=== PATIENT | male | born 1975 | race Caucasian/White ===

== ENCOUNTER 2023-09-21 08:12 | Outpatient (CLI) | payer OTHER, SELFPAY ==
--- NOTE | 2023-09-21 08:27 | ECG_ITS ---
Measurements Intervals [place] Rate: 70 P: 22 CO: 160 QRS: 1 QRSD: 104 T: 31 QT: 372 QTc: 403 Interpretive Statements SINUS RHYTHM NO PREVIOUS ECG AVAILABLE FOR COMPARISON Electronically Signed On 09-21-2023 8:49:46 BOARDING MACHINE OPERATOR by Raheel Beaulieu M.D.
== END 2023-09-21 08:13 | disposition home or self-care (01) ==
PROVIDERS: Visit Provider Otolaryngology
DX: E78.00 Pure hypercholesterolemia, unspecified (principal); Z01.818 Encounter for other preprocedural examination
CPT/HCPCS: 93005

== ENCOUNTER 2023-09-27 02:07 | Day surgery (SDC) | payer OTHER, SELFPAY ==
[2023-09-15 14:30] VITALS: BMI 29.9
--- NOTE | 2023-09-15 14:39 | PC.NURSE ---
Report to the Outpatient Waiting Room, entrance under the green pavilion located off [facility], at time 07:30AM on date 09-27-23. Planned Procedure Time: 09:30AM. Time changes happen often and if your time is changed the preop area will call you the afternoon before. - You and your visitor will be asked to self-screen and do not enter if you have any COVID symptoms. - A mask is optional within the hospital at this time. Patients may have clear liquids (water, carbonated beverages, clear teas, apple juice) until 3 hours prior to surgery (06:30AM) with a maximum of 20 ounces. - No food from midnight until time of surgery Take the following medications with a SIP of water the morning of surgery: CLONAZEPAM NEEDED, SERTRALINE NIGHT BEFORE DO NOT STOP ANY OF YOUR OTHER PRESCRIPTION MEDICATIONS PRIOR TO SURGERY ?EXCEPT THE FOLLOWING Medications to discontinue per physician VIT D Date to take last dose 08-23-23 Please no make-up, nail english, hairspray, perfume, deodorant, or body powder the day of surgery. No jewelry (including any body piercings) or valuables the day of surgery, leave them at home. Please take a shower or bath the night before, or the morning of, surgery with an antibacterial soap. Wear comfortable, loose fitting clothing. - Jewelry must be removed prior to entering the operating room. Rings and piercings that are not removed may be cut off. - The hospital will not accept responsibility for valuables. - Please leave all valuables, including medications, at home the day of surgery. If you are going home after surgery, a licensed stage driver must drive you home. - NO public transportation without another adult if you receive anesthesia. - We recommend that an adult stay with you for 24 hours following discharge. - We also recommend that you do not drive, make important decision, drink alcoholic beverages, or take any drugs that were not prescribed by your health care provider for at least 24 hours after your discharge time. Follow any additional instructions given to you from your surgeon. If you or anyone in your household have experienced Covid symptoms in the past week, please notify your surgeon or the nurse liaison at the phone number below for possible testing. Telephone instructions given to PATIENT and asked if any additional questions and then verbalized understanding. Patient advised to call surgeon office or pre surgery nurse liaison [phone] if any additional questions.
[2023-09-27] VITALS (7 sets, daily range): BP systolic 99–117; BP diastolic 46–78; PULSE 66–98; RESP 12–16; TEMP 36.2; O2SAT 97–100
[2023-09-27] MEDS: ACETAMINOPHEN 500 MG TABLET 1000 MG PO (07:37)
--- NOTE | 2023-09-27 08:29 | WPDANESEPPF ---
Anes - Initial Pre Proc Eval Procedure: Operation Date: 09/27/23 09:30 Proposed Procedures p Left Ear Tympanoplasty - Tommy Carlos MD Date/Time: 09/27/23 08:29 Surgeon: Tommy Carlos MD Pre Op Diagnosis: perforated eardrum, eustachian tube dysfunction Patient Data Age: 48 Gender: M Height: 1.83 m Weight: 100.5 kg Last Vital Signs Temp 36.2 C L 09/27/23 07:44 Pulse 66 09/27/23 07:44 Resp 16 09/27/23 07:44 BP 117/78 09/27/23 07:44 Pulse Ox 100 09/27/23 07:44 O2 Del Method Room Air 09/27/23 07:44 Allergies Allergy/AdvReac Type Severity Reaction Status Date / Time No Known Allergies Allergy Verified 09/27/23 07:35 Home Medications Medication Instructions Recorded Confirmed Type cholecalciferol (vitamin D3) 125 125 mcg PO DAILY 09/15/23 09/15/23 History mcg (5,000 unit) tablet clonazepam 0.5 mg tablet 0.5 mg PO PRN PRN Anxiety 09/15/23 09/15/23 History fluticasone propionate 50 1 spray intranasal DAILY 09/15/23 09/15/23 History mcg/actuation nasal spray,suspension loratadine 10 mg tablet (Claritin) 10 mg PO DAILY 09/15/23 09/15/23 History sertraline 50 mg tablet 50 mg PO DAILY 09/15/23 09/15/23 History simvastatin 20 mg tablet 20 mg PO DAILY 09/15/23 09/15/23 History Patient hx anesthesia problems: none Family hx anesthesia problems: none Results Review: All pre-operative results and documents have been reviewed as part of the pre-operative evaluation. [facility] Past Medical History Medical History (Updated 09/27/23 @ 10:02 by Tommy Carlos MD) Anxiety Depression GERD (gastroesophageal reflux disease) Hyperlipidemia CARMEN (obstructive sleep apnea) Social History Social History Smoking status: Never smoker Second hand tobacco smoke exposure: No Alcohol intake: former Alcohol use details: HAS DRANK SOCIALLY IN THE PAST Substance use: never Substance use type: does not use Living arrangements: with family Spiritual care concerns: No Anes - Eval Final PreProcedure Day of Procedure 09/27/23 08:29 Patient weight: obese Heart: regular rate and rhythm Lungs: clear to auscultation Airway: Mallampati scale class II Neurological: alert and oriented Last oral intake: >/= 8 hours ASA classification: III Emergent: no Anesthetic plan: proceed Anesthesia type and monitoring: general GIVS and standard monitoring Results Review: All pre-operative results and documents have been reviewed as part of the pre-operative evaluation. Informed Consent: The patient's anesthetic plan and its attendant risks and benefits were discussed with the patient/family/POA. Questions were solicited and answers provided to the satisfaction of the patient/family/POA.
[2023-09-27] MEDS: LACTATED RINGERS 1,000 ML 30 ML IV CONT ×2 (09:43→12:21)
--- NOTE | 2023-09-27 10:00 | PM.IMHP ---
H&P: HPI History of Present Illness Date/Time: 09/27/23 10:00 Chief Complaint: Bilateral TM perforation, ETD Narrative: This patient has bilateral TM perforations from T-tubes performed at outside facility, presented to ENT with aural fullness and hearing loss, here for LEFT TM perforation. Review of Systems Review of Systems: All systems reviewed & are unremarkable except as noted in HPI and below PMFSH Past Medical History Medical History Anxiety Depression GERD (gastroesophageal reflux disease) Hyperlipidemia CARMEN (obstructive sleep apnea) Social History Social History Smoking status: Never smoker Second hand tobacco smoke exposure: No Alcohol intake: former Alcohol use details: HAS DRANK SOCIALLY IN THE PAST Substance use: never Substance use type: does not use Living arrangements: with family Spiritual care concerns: No Meds Home Medications and Allergies Home Medications Medication Instructions Recorded Confirmed Type cholecalciferol (vitamin D3) 125 125 mcg PO DAILY 09/15/23 09/15/23 History mcg (5,000 unit) tablet clonazepam 0.5 mg tablet 0.5 mg PO PRN PRN Anxiety 09/15/23 09/15/23 History fluticasone propionate 50 1 spray intranasal DAILY 09/15/23 09/15/23 History mcg/actuation nasal spray,suspension loratadine 10 mg tablet (Claritin) 10 mg PO DAILY 09/15/23 09/15/23 History sertraline 50 mg tablet 50 mg PO DAILY 09/15/23 09/15/23 History simvastatin 20 mg tablet 20 mg PO DAILY 09/15/23 09/15/23 History Allergies Allergy/AdvReac Type Severity Reaction Status Date / Time No Known Allergies Allergy Verified 09/27/23 07:35 Vital Signs Vital Signs - 24 hr 09/27/23 07:44 Temperature 36.2 C L Pulse Rate 66 Respiratory Rate 16 Blood Pressure 117/78 Pulse Oximetry 100 Oxygen Delivery Room Air Exam Narrative: 50% left TM perforation with dry edges, rest of exam wnl Assessment and Plan Assessment and plan (1) Tympanic membrane perforation: Code(s): H72.90 - Unspecified perforation of tympanic membrane, unspecified ear Status: Acute Plan 48y M with bilateral TM perforation, LEFT tympanoplasty today. left ear marked. r/b/a reviewed, all questions answered, pt agrees to proceed.
--- NOTE | 2023-09-27 10:07 | WPDHPUPDATE1 ---
History and Physical Update Update Date/Time: 09/27/23 10:07 History and Physical has been reviewed, including an updated exam of the patient. There are NO changes in the patient's condition. Risks, benefits, and alternatives have been discussed and questions answered. Patient agrees to proceed with procedure.
[2023-09-27] MEDS: ceFAZolin 2 GM/D5W 50 ML 2 GM/50 ML BAG IVPB (10:38)
[2023-09-27] MEDS: EPINEPHrine HCL INJ 1 MG/ML AMPUL IRRIGATION (11:06)
[2023-09-27] MEDS: CIPROFLOXACIN HCL 0.3% OP SOLN 2.5 ML BTL 4 DROP EACH EAR (12:06)
[2023-09-27] MEDS: MUPIROCIN 2% OINT 22 GM TUBE 1 APPLIC TOPICAL (12:08)
--- NOTE | 2023-09-27 12:16 | P.OP_ITS ---
Procedure Note - Detailed Date of Procedure 09/27/23 Pre-op Diagnosis perforated eardrum, eustachian tube dysfunction Post-op Diagnosis Same Procedure Performed Left medial graft tympanoplasty Surgeon Tommy Carlos MD Anesthesia General Indications left TM perforation Findings 50% TM perforation, medial graft from temporalis fascia Description of Procedure On the date of surgery, the patient was identified in the preoperative holding area.? The left ear was marked indicating the correct side of surgery.? They consented to surgery and was brought back to the operating room and placed under general anesthesia.? A timeout was performed verifying the correct patient identity and procedure to be performed.? The bed was rotated 180 degrees and a small amount of hair was trimmed from the left postauricular area.? They were then prepped and draped in standard fashion for left sided tympanoplasty. Attention first was directed through the ear canal.? Cerumen was removed under binocular microscopy and the perforation was examined and found to be 40-50% of the size of the tympanic membrane.? The middle ear space was dry.? The edges of the perforation were freshened using a valverde pick and microcup forceps.? Next, a 4 quadrant injection was performed with 1% lidocaine with 1:100k epinephrine.? The postauricular sulcus was also injected.? Using an angled and straight [place] blade, a vascular strip was elevated and tympanomeatal flap incisions were made.? The tympanomeatal flap was then elevated partially and a cotton ball soaked in 1:1000 epinephrine diluted with 10cc of saline was placed in the canal . Next, attention was directed behind the ear.? An incision was made in the post- auricular sulcus.? Using bovie electrocautery, dissection was performed through the subcutaneous tissues down to the level of the fascia.? The temporalis fascia was then identified and dissected free superficially and deep.? A 15 blade was used to incise through the fascia and then was elevated.? A 2x2cm window of fa scia was then harvested, flattened on a sil block and then placed in a graft press for 5 minutes, then opened to dry. While the graft was prepared, the tympanomeatal flap was elevated and the rolando ulus was lifted out of the annular groove.? The middle ear space was entered with a pick and the annulus was fully elevated out of the groove and the tympanomeatal flap was completely elevated.? Several small pieces of gelfoam were placed in the middle ear space.? Next, the graft was? placed in the canal and in the middle ear space medial to the [place] tympanic membrane.? Some manipulation allowed it to cover the entire perforation.? Gelfoam was then packed in the middle ear space further to bulk out the graft.? Once satisfied with the positioning covering the entire perforation, the tympanomeatal flap and graft were laid down.? The ear canal was further packed with gelfoam to the catilaginous meatus.? The postauricular incision was then closed with 3-0 vicryl, 4-0 monocryl and dermabond in a layered fashion.? The canal was filled with mupirocin ointment and a cotton ball was placed in the meatus.? The drapes were taken down and care of the patient was returned to anesthsia who woke them up in the OR and transferred to the PACU for recovery in stable condition without complication. Estimated Blood Loss 5 Drains No Packing No Pathology None sent Complications No immediate complications Condition Stable Disposition PACU
== END 2023-09-27 14:05 | disposition home or self-care (01) ==
PROVIDERS: Visit Provider Otolaryngology
PROC: (CPT 69610; principal; 2023-09-27 09:30)
DX: H72.92 Unspecified perforation of tympanic membrane, left ear (principal); H69.92 Unspecified Eustachian tube disorder, left ear; F41.9 Anxiety disorder, unspecified; F32.A Depression, unspecified; K21.9 Gastro-esophageal reflux disease without esophagitis; E78.5 Hyperlipidemia, unspecified; G47.33 Obstructive sleep apnea (adult) (pediatric); E66.9 Obesity, unspecified; Z68.30 Body mass index [BMI] 30.0-30.9, adult
CPT/HCPCS: 69610; 15769; 93005; A9270; J0171; J0461; J0690; J1100; J1170; J1596; J2250; J2371; J2405; J2704; J3010; J7120

== ENCOUNTER 2023-11-08 00:58 | Day surgery (SDC) | payer OTHER, SELFPAY ==
--- NOTE | 2023-11-01 13:15 | PC.NURSE ---
Report to the Outpatient Waiting Room, entrance under the green pavilion located off [facility], at time 0815 on date 11/08/23. Planned Procedure Time: 1015. Time changes happen often and if your time is changed the preop area will call you the afternoon before. - You and your visitor will be asked to self-screen and do not enter if you have any COVID symptoms. - A mask is optional within the hospital at this time. Patients may have clear liquids (water, carbonated beverages, clear teas, apple juice) until 3 hours prior to surgery with a maximum of 20 ounces. - No food from midnight until time of surgery Take the following medications with a SIP of water the morning of surgery: CLONAZEPAM IF NEEDED DO NOT STOP ANY OF YOUR OTHER PRESCRIPTION MEDICATIONS PRIOR TO SURGERY ?EXCEPT THE FOLLOWING Medications to discontinue per physician: VITAMINS Date to take last dose: 11/04/23 Please no make-up, nail ukrainian, hairspray, perfume, deodorant, or body powder the day of surgery. No jewelry (including any body piercings) or valuables the day of surgery, leave them at home. Please take a shower or bath the night before, or the morning of, surgery with an antibacterial soap. Wear comfortable, loose fitting clothing. - Jewelry must be removed prior to entering the operating room. Rings and piercings that are not removed may be cut off. - The hospital will not accept responsibility for valuables. - Please leave all valuables, including medications, at home the day of surgery. If you are going home after surgery, a licensed food mobile driver must drive you home. - NO public transportation without another adult if you receive anesthesia. - We recommend that an adult stay with you for 24 hours following discharge. - We also recommend that you do not drive, make important decision, drink alcoholic beverages, or take any drugs that were not prescribed by your health care provider for at least 24 hours after your discharge time. Follow any additional instructions given to you from your surgeon. If you or anyone in your household have experienced Covid symptoms in the past week, please notify your surgeon or the nurse liaison at the phone number below for possible testing. Telephone instructions given to PT - ALHAJI CERRATO and asked if any additional questions and then verbalized understanding. Patient advised to call surgeon office or pre surgery nurse liaison [phone] if any additional questions.
[2023-11-08] VITALS (7 sets, daily range): BP systolic 100–120; BP diastolic 61–80; PULSE 64–86; RESP 12–14; TEMP 36.2–36.3; O2SAT 99–100
--- NOTE | 2023-11-08 07:08 | WPDHPUPDATE1 ---
History and Physical Update Update Date/Time: 11/08/23 07:08 History and Physical has been reviewed, including an updated exam of the patient. There are NO changes in the patient's condition. Risks, benefits, and alternatives have been discussed and questions answered. Patient agrees to proceed with procedure.
[2023-11-08] MEDS: ACETAMINOPHEN 500 MG TABLET 1000 MG PO (07:36)
--- NOTE | 2023-11-08 07:45 | W.PM.PROC2 ---
Procedure Note - Detailed Date of Procedure 11/08/23 Pre-op Diagnosis tympanic membrane perforation rt ear Post-op Diagnosis Same Procedure Performed Right fat graft myringoplasty Surgeon Tommy Carlos MD Anesthesia General Indications Right TM perforation Findings 15-20% central anterior perforation closed with fat graft harvested from ear lobule Description of Procedure On date of surgery, the patient was identified in the preoperative holding area. Consent signed and verified. The right ear was marked. The patient was then taken back to the OR and placed under general anesthesia via laryngeal mask. A timeout was performed verifying the correct patient identity, laterality and procedure which they were. The patient was then prepped and draped for RIGHT ear surgery. The ear was first examined under binocular microscope. This revealed a 15% central perforation of the tympanic membrane. The edges were freshened using a valverde pick with a postage stamp technique. Next, a small amount of gelfoam packing was secured in the middle ear space to create a bed for the graft. Attention was then directed to the ear lobule. A 1cm incision was made at the inferior aspect of the lobule after 1% lidocaine with 1:100k epinephrine was infiltrated. A piece of fat was harvested for grafting with care to avoid injury to surrounding skin. The harvest site was then closed with 5-0 fast absorbing suture in an interrupted fashion. The fat graft was then placed on the gelfoam, completely covering the perforation. Satisfied with placement, A cotton ball was placed in the ear canal, ointment and bandage placed on the harvest site, and care of the patient was returned to anesthesia who woke the patient up, removed LMA and transferred the patient to the PACU for recovery in stable condition without complication. Tommy Carlos M.D. Estimated Blood Loss 1 Drains No Packing Yes (gelfoam in middle ear space) Pathology None sent Complications No immediate complications Condition Stable Disposition PACU
--- NOTE | 2023-11-08 07:52 | WPDANESEPPF ---
Anes - Initial Pre Proc Eval Procedure: Operation Date: 11/08/23 08:00 Proposed Procedures p Right Ear Fat Graft Myringoplasty - Tommy Carlos MD Date/Time: 11/08/23 07:52 Surgeon: Tommy Carlos MD Pre Op Diagnosis: tympanic membrane perforation rt ear Patient Data Age: 48 Gender: M Height: 1.83 m Weight: 102.3 kg Last Vital Signs Temp 36.2 C L 11/08/23 07:00 Pulse 75 11/08/23 07:00 Resp 12 11/08/23 07:00 BP 114/76 11/08/23 07:00 Pulse Ox 100 11/08/23 07:00 O2 Del Method Room Air 11/08/23 07:00 Allergies Allergy/AdvReac Type Severity Reaction Status Date / Time No Known Allergies Allergy Verified 11/08/23 07:32 Home Medications Medication Instructions Recorded Confirmed Type cholecalciferol (vitamin D3) 125 125 mcg PO DAILY 09/15/23 11/08/23 History mcg (5,000 unit) tablet clonazepam 0.5 mg tablet 0.5 mg PO PRN PRN Anxiety 09/15/23 11/08/23 History fluticasone propionate 50 1 spray intranasal DAILY 09/15/23 11/08/23 History mcg/actuation nasal spray,suspension loratadine 10 mg tablet (Claritin) 10 mg PO DAILY 09/15/23 11/08/23 History sertraline 50 mg tablet 50 mg PO HS 09/15/23 11/08/23 History simvastatin 20 mg tablet 20 mg PO DAILY 09/15/23 11/08/23 History Patient hx anesthesia problems: none Family hx anesthesia problems: none Results Review: All pre-operative results and documents have been reviewed as part of the pre-operative evaluation. [facility] Past Medical History Medical History Anxiety Depression GERD (gastroesophageal reflux disease) Hyperlipidemia CARMEN (obstructive sleep apnea) Social History Social History Smoking status: Never smoker Second hand tobacco smoke exposure: No Alcohol intake: former Alcohol use details: FORMER SOCIAL DRINKER Substance use: never Substance use type: does not use Living arrangements: with family Spiritual care concerns: No Anes - Eval Final PreProcedure Day of Procedure 11/08/23 07:52 Patient weight: obese Heart: regular rate and rhythm Lungs: clear to auscultation Airway: Mallampati scale class II Neurological: alert and oriented Last oral intake: >/= 8 hours ASA classification: III Emergent: no Anesthetic plan: proceed Anesthesia type and monitoring: general LMA and standard monitoring Results Review: All pre-operative results and documents have been reviewed as part of the pre-operative evaluation. Informed Consent: The patient's anesthetic plan and its attendant risks and benefits were discussed with the patient/family/POA. Questions were solicited and answers provided to the satisfaction of the patient/family/POA.
[2023-11-08] MEDS: LACTATED RINGERS 1,000 ML 30 ML IV CONT (07:55)
[2023-11-08] MEDS: LIDO 1%/EPINEPHRINE 1:100,000 50 ML VIAL INFILTRATE (08:15)
--- NOTE | 2023-11-08 08:37 | SUR.PHASEI ---
0830:Simple mask removed per patient.
== END 2023-11-08 09:57 | disposition home or self-care (01) ==
PROVIDERS: Visit Provider Otolaryngology
PROC: (CPT 69424; principal; 2023-11-08 08:00)
DX: H72.01 Central perforation of tympanic membrane, right ear (principal); E78.00 Pure hypercholesterolemia, unspecified; F41.9 Anxiety disorder, unspecified; F32.A Depression, unspecified; K21.9 Gastro-esophageal reflux disease without esophagitis; G47.33 Obstructive sleep apnea (adult) (pediatric); E66.9 Obesity, unspecified; Z68.30 Body mass index [BMI] 30.0-30.9, adult
CPT/HCPCS: 69610; 15769; A9270; J1100; J2405; J2704; J3010; J7120